=== PATIENT | male | born 1960 | race Caucasian/White ===

== ENCOUNTER 2018-02-06 19:20 | Inpatient (IN) ==
[2018-02-14 08:16] VITALS: BP 125/79
== END 2018-02-14 08:57 | disposition home health service (06) | DRG 234 ==
LOC: N.EDINP 19:20 → N.ED 19:20 → SUATTDRO 21:06 → N.3E 22:03 → N.TELEN 02-07 13:55 → N.CVR 02-10 08:05 → N.TELES 02-11 12:14
PROVIDERS: ADMIT Family Medicine; ATTEND Family Medicine

== ENCOUNTER 2022-02-01 08:20 | Inpatient (IN) ==
[2022-02-01 09:08] LABS: Basophils % 0.3 % (0.0-0.8); Eosinophils # 0.1 10*3/uL (0.0-0.87); Eosinophils % 1.1 % (0.00-10.9); Hematocrit 30.5 VOL% (42.0-52.0); Hemoglobin 9.4 GM/DL (14.0-18.0); Immature Granulocytes Absolute 0.16 #; Lymphocytes # 0.1 10*3/uL (1.4-4.0); Lymphocytes % 1.8 % (21.2-54.2); Mean Corpuscular HGB Conc 30.8 GM/DL (32-36); Mean Corpuscular Volume 93.6 FL (87-102); Mean Platelet Volume 10.7 FL (9.6-12.0); Monocytes # 0.5 10*3/uL (0.11-0.8); Monocytes % 6.4 % (1.7-12.7); Neutrophils % 88.4 % (38.7-73.9); Platelet Count 110 T/CUMM (130-400); Red Blood Count 3.26 MC/CUMM (3.8-5.5); Red Cell Distribution Width 16.1 % (9.3-17.3); White Blood Count 7.9 T/CUMM (4-12)
[2022-02-01 09:18] LABS: INR 1.3; Partial Thromboplastin Time 37.7 SECS (23.7-32.9)
[2022-02-01 09:27] LABS: Lymphocytes 1 % (20-55); Total Cells Counted 100
[2022-02-01 09:35] LABS: Bilirubin,Total 0.5 MG/DL (0.20-1.00); Calcium 7.8 MG/DL (8.5-10.1); Osmolality,Calculated 272.1 MOS/KG (273-304); Potassium 3.9 MMOL/L (3.5-5.1)
[2022-02-01] MEDS ORDERED: SODIUM CHLORIDE 0.9% 1,000 ML IV STA (12:07)
[2022-02-01] MEDS ORDERED: PIPERACILLIN/TAZOBACTAM 3,375 MG in SODIUM CHLORIDE 0.9% 100 ML IV STA (12:07)
[2022-02-01] MEDS ORDERED: SODIUM CHLORIDE 0.9% 500 ML IV STA (12:17)
[2022-02-01] MEDS ORDERED: ONDANSETRON 4 MG/2 ML VIAL IV PRN (12:32)
[2022-02-01] MEDS ORDERED: ACETAMINOPHEN 325 MG TABLET PO PRN (12:32)
[2022-02-01] MEDS ORDERED: MORPHINE 2 MG/1 ML SYRINGE IV STA (12:39)
[2022-02-01] MEDS ORDERED: BISACODYL 10 MG SUPP RECTAL ONE (17:09)
[2022-02-01] MEDS ORDERED: FUROSEMIDE 20 MG/2 ML VIAL IV ONE (17:11)
[2022-02-01] MEDS ORDERED: GLUCAGON 1 MG VIAL IM PRN (17:13)
[2022-02-01] MEDS ORDERED: DEXTROSE 10% 250 ML BAG IV PRN (17:28)
[2022-02-01] MEDS: HYDROmorphone 1 MG/1 ML SYRINGE IV PRN (20:25)
[2022-02-01] MEDS: DOCUSATE SODIUM 100 MG CAPSULE PO SCH (20:26)
[2022-02-01] MEDS: PIPERACILLIN/TAZOBACTAM 3,375 MG in SODIUM CHLORIDE 0.9% 100 ML IV SCH (20:27)
[2022-02-01] MEDS: ZALEPLON 5 MG CAPSULE PO SCH (20:39)
[2022-02-01] MEDS: INSULIN REGULAR 100 UNIT/ML SUBCUT SCH (22:35)
[2022-02-02] MEDS: HYDROmorphone 1 MG/1 ML SYRINGE IV PRN ×2 (01:40→05:49)
[2022-02-02] MEDS: LORazepam 1 MG TABLET PO PRN ×2 (04:32→13:20)
[2022-02-02] MEDS: PIPERACILLIN/TAZOBACTAM 3,375 MG in SODIUM CHLORIDE 0.9% 100 ML IV SCH ×3 (05:09→21:41)
[2022-02-02] MEDS: INSULIN REGULAR 100 UNIT/ML SUBCUT SCH ×4 (07:28→21:24)
[2022-02-02] MEDS: PANTOPRAZOLE 40 MG TABLET PO SCH (08:07)
[2022-02-02] MEDS: MELOXICAM 7.5 MG TABLET PO SCH ×2 (08:07→21:40)
[2022-02-02] MEDS: DOCUSATE SODIUM 100 MG CAPSULE PO SCH ×2 (08:07→21:40)
[2022-02-02] MEDS: MORPHINE ER 30 MG TABLET PO SCH ×2 (08:07→21:40)
[2022-02-02] MEDS: GABAPENTIN 100 MG CAPSULE PO SCH ×3 (08:07→21:40)
[2022-02-02] MEDS ORDERED: MORPHINE 60 MG PO SCH (09:00)
[2022-02-02] MEDS: DORNASE ALFA 2.5 MG/2.5 ML VIAL RESP TX SCH ×2 (11:43→19:05)
[2022-02-02] MEDS: VANCOMYCIN INJ 1,250 MG in SODIUM CHLORIDE 0.9% 250 ML IV SCH (14:41)
[2022-02-02] MEDS: ALBUTEROL/IPRATROPIUM 3 ML NEB RESP TX SCH ×2 (15:17→22:00)
[2022-02-02 16:46] LABS: Glucose,Pleural Fluid 127 MG/DL; LDH,Pleural Fluid 225 U/L; Total Protein,Pleural Fluid 3.2 G/DL
[2022-02-02 17:18] LABS: Lymphocytes,Pleural Fluid 42 %; Monocytes,Pleural Fluid 5 %; Neutrophils,Pleural Fluid 53 %
[2022-02-02 19:46] LABS: RBC,Pleural Fluid 1062 T/CUMM
[2022-02-02] MEDS: ZALEPLON 5 MG CAPSULE PO SCH (21:41)
[2022-02-03] MEDS: VANCOMYCIN INJ 1,250 MG in SODIUM CHLORIDE 0.9% 250 ML IV SCH ×2 (02:15→15:24)
[2022-02-03] MEDS: PIPERACILLIN/TAZOBACTAM 3,375 MG in SODIUM CHLORIDE 0.9% 100 ML IV SCH ×3 (05:00→20:28)
[2022-02-03] MEDS: INSULIN REGULAR 100 UNIT/ML SUBCUT SCH ×4 (07:39→20:26)
[2022-02-03] MEDS: ALBUTEROL/IPRATROPIUM 3 ML NEB RESP TX SCH ×3 (08:00→23:04)
[2022-02-03] MEDS: MORPHINE ER 30 MG TABLET PO SCH ×2 (08:17→20:27)
[2022-02-03] MEDS: GABAPENTIN 100 MG CAPSULE PO SCH ×3 (08:17→20:28)
[2022-02-03] MEDS: MELOXICAM 7.5 MG TABLET PO SCH ×2 (08:17→20:27)
[2022-02-03] MEDS: PANTOPRAZOLE 40 MG TABLET PO SCH (08:17)
[2022-02-03] MEDS: DOCUSATE SODIUM 100 MG CAPSULE PO SCH ×2 (08:17→20:25)
[2022-02-03] MEDS: FLUCONAZOLE 200 MG TABLET PO SCH (12:34)
[2022-02-03] MEDS: DORNASE ALFA 2.5 MG/2.5 ML VIAL RESP TX SCH ×2 (20:25→23:04)
[2022-02-03] MEDS: ZALEPLON 5 MG CAPSULE PO SCH (20:28)
[2022-02-03] MEDS: LORazepam 1 MG TABLET PO PRN (20:29)
[2022-02-04] MEDS: VANCOMYCIN INJ 1,250 MG in SODIUM CHLORIDE 0.9% 250 ML IV SCH ×2 (03:21→15:14)
[2022-02-04] MEDS: PIPERACILLIN/TAZOBACTAM 3,375 MG in SODIUM CHLORIDE 0.9% 100 ML IV SCH ×3 (05:50→20:40)
[2022-02-04] MEDS: DORNASE ALFA 2.5 MG/2.5 ML VIAL RESP TX SCH ×2 (07:05→19:00)
[2022-02-04] MEDS: ALBUTEROL/IPRATROPIUM 3 ML NEB RESP TX SCH ×3 (07:05→23:50)
[2022-02-04] MEDS: INSULIN REGULAR 100 UNIT/ML SUBCUT SCH ×4 (07:31→20:40)
[2022-02-04] MEDS: GABAPENTIN 100 MG CAPSULE PO SCH ×3 (08:09→20:40)
[2022-02-04] MEDS: PANTOPRAZOLE 40 MG TABLET PO SCH (08:09)
[2022-02-04] MEDS: DOCUSATE SODIUM 100 MG CAPSULE PO SCH ×2 (08:09→20:40)
[2022-02-04] MEDS: FLUCONAZOLE 200 MG TABLET PO SCH (08:11)
[2022-02-04] MEDS: MELOXICAM 7.5 MG TABLET PO SCH ×2 (08:11→20:40)
[2022-02-04] MEDS: MORPHINE ER 30 MG TABLET PO SCH ×2 (08:11→20:40)
[2022-02-04] MEDS ORDERED: LACTULOSE 20 GM/30 ML UDCUP PO PRN (10:04)
[2022-02-04] MEDS: POLYETHYLENE GLYCOL POWDER 17 GM PACK PO SCH (10:15)
[2022-02-04] MEDS: ZALEPLON 5 MG CAPSULE PO SCH (20:40)
[2022-02-05 02:33] LABS: Basophils % 0.3 % (0.0-0.8); Eosinophils # 0.1 10*3/uL (0.0-0.87); Hematocrit 29.3 VOL% (42.0-52.0); Immature Granulocytes % 1.7 %; Lymphocytes # 0.1 10*3/uL (1.4-4.0); Lymphocytes % 1.8 % (21.2-54.2); Mean Corpuscular HGB Conc 30.7 GM/DL (32-36); Mean Corpuscular Volume 92.1 FL (87-102); Mean Platelet Volume 10.9 FL (9.6-12.0); Monocytes # 0.4 10*3/uL (0.11-0.8); Monocytes % 7.3 % (1.7-12.7); Neutrophils % 86.9 % (38.7-73.9); Platelet Count 90 T/CUMM (130-400); Red Blood Count 3.18 MC/CUMM (3.8-5.5); Red Cell Distribution Width 15.9 % (9.3-17.3)
[2022-02-05 02:53] LABS: Albumin 2.1 G/DL (3.4-5.0); Bilirubin,Total 0.6 MG/DL (0.20-1.00); Calcium 7.4 MG/DL (8.5-10.1); Osmolality,Calculated 265.4 MOS/KG (273-304); Total Protein 5.2 G/DL (6.4-8.2)
[2022-02-05] MEDS: VANCOMYCIN INJ 1,250 MG in SODIUM CHLORIDE 0.9% 250 ML IV SCH ×2 (03:00→17:32)
[2022-02-05 03:24] LABS: Anisocytosis 1+; Band Neutrophils 11 % (0-10); Eosinophils 2 % (0-10); Lymphocytes 1 % (20-55); Macrocytosis Slight; Platelet Estimate Decreased; Total Cells Counted 100
[2022-02-05] MEDS: PIPERACILLIN/TAZOBACTAM 3,375 MG in SODIUM CHLORIDE 0.9% 100 ML IV SCH ×3 (04:30→21:30)
[2022-02-05] MEDS: ALBUTEROL/IPRATROPIUM 3 ML NEB RESP TX SCH ×3 (07:09→22:55)
[2022-02-05] MEDS: DORNASE ALFA 2.5 MG/2.5 ML VIAL RESP TX SCH ×2 (07:15→22:48)
[2022-02-05] MEDS: INSULIN REGULAR 100 UNIT/ML SUBCUT SCH ×4 (07:59→21:30)
[2022-02-05] MEDS ORDERED: VANCOMYCIN INJ 2,000 MG in SODIUM CHLORIDE 0.9% 500 ML IV ONE (08:00)
[2022-02-05] MEDS: MORPHINE ER 30 MG TABLET PO SCH ×2 (08:01→21:30)
[2022-02-05] MEDS: MELOXICAM 7.5 MG TABLET PO SCH ×2 (08:01→21:30)
[2022-02-05] MEDS: POLYETHYLENE GLYCOL POWDER 17 GM PACK PO SCH (08:01)
[2022-02-05] MEDS: PANTOPRAZOLE 40 MG TABLET PO SCH (08:01)
[2022-02-05] MEDS: GABAPENTIN 100 MG CAPSULE PO SCH ×3 (08:01→21:30)
[2022-02-05] MEDS: DOCUSATE SODIUM 100 MG CAPSULE PO SCH ×2 (08:02→21:30)
[2022-02-05] MEDS: FLUCONAZOLE 200 MG TABLET PO SCH (08:02)
[2022-02-05] MEDS: ZALEPLON 5 MG CAPSULE PO SCH (21:30)
[2022-02-06] MEDS: VANCOMYCIN INJ 1,250 MG in SODIUM CHLORIDE 0.9% 250 ML IV SCH ×3 (01:35→17:29)
[2022-02-06] MEDS: PIPERACILLIN/TAZOBACTAM 3,375 MG in SODIUM CHLORIDE 0.9% 100 ML IV SCH ×3 (04:00→20:50)
[2022-02-06] MEDS: ALBUTEROL/IPRATROPIUM 3 ML NEB RESP TX SCH ×3 (07:37→23:35)
[2022-02-06] MEDS: INSULIN REGULAR 100 UNIT/ML SUBCUT SCH ×4 (07:44→20:50)
[2022-02-06] MEDS: DORNASE ALFA 2.5 MG/2.5 ML VIAL RESP TX SCH ×2 (07:49→20:11)
[2022-02-06] MEDS: MELOXICAM 7.5 MG TABLET PO SCH ×2 (08:19→20:48)
[2022-02-06] MEDS: DOCUSATE SODIUM 100 MG CAPSULE PO SCH ×2 (08:19→20:49)
[2022-02-06] MEDS: MORPHINE ER 30 MG TABLET PO SCH ×2 (08:20→20:49)
[2022-02-06] MEDS: GABAPENTIN 100 MG CAPSULE PO SCH ×3 (08:20→20:49)
[2022-02-06] MEDS: FLUCONAZOLE 200 MG TABLET PO SCH (08:20)
[2022-02-06] MEDS: PANTOPRAZOLE 40 MG TABLET PO SCH (08:20)
[2022-02-06] MEDS: POLYETHYLENE GLYCOL POWDER 17 GM PACK PO SCH (08:24)
[2022-02-06] MEDS: valACYclovir 500 MG TABLET PO SCH ×3 (09:30→20:49)
[2022-02-06] MEDS ORDERED: DOXYCYCLINE HYCLATE INJ 200 MG, LIDOCAINE 1% INJ 20 ML in STERILE WATER INJ 30 ML INTRAPLEUR ONE (16:30)
[2022-02-06] MEDS: ZALEPLON 5 MG CAPSULE PO SCH (20:48)
[2022-02-06] MEDS: NYSTATIN POWDER 15 GM BOTTLE TOP SCH (20:50)
[2022-02-07] MEDS: VANCOMYCIN INJ 1,250 MG in SODIUM CHLORIDE 0.9% 250 ML IV SCH (01:06)
[2022-02-07] MEDS: PIPERACILLIN/TAZOBACTAM 3,375 MG in SODIUM CHLORIDE 0.9% 100 ML IV SCH ×3 (05:48→23:59)
[2022-02-07] MEDS: INSULIN REGULAR 100 UNIT/ML SUBCUT SCH ×4 (07:21→22:52)
[2022-02-07] MEDS: ALBUTEROL/IPRATROPIUM 3 ML NEB RESP TX SCH ×2 (07:38→15:10)
[2022-02-07] MEDS: DORNASE ALFA 2.5 MG/2.5 ML VIAL RESP TX SCH (07:47)
[2022-02-07 08:40] LABS: Basophils % 0.2 % (0.0-0.8); Eosinophils # 0.1 10*3/uL (0.0-0.87); Eosinophils % 1.9 % (0.00-10.9); Hematocrit 30.3 VOL% (42.0-52.0); Hemoglobin 9.2 GM/DL (14.0-18.0); Immature Granulocytes % 1.4 %; Immature Granulocytes Absolute 0.08 #; Lymphocytes # 0.2 10*3/uL (1.4-4.0); Lymphocytes % 2.6 % (21.2-54.2); Mean Corpuscular HGB Conc 30.4 GM/DL (32-36); Mean Corpuscular Volume 91.3 FL (87-102); Mean Platelet Volume 11.5 FL (9.6-12.0); Monocytes # 0.5 10*3/uL (0.11-0.8); Monocytes % 8.1 % (1.7-12.7); Neutrophils % 85.8 % (38.7-73.9); Platelet Count 98 T/CUMM (130-400); Red Blood Count 3.32 MC/CUMM (3.8-5.5); Red Cell Distribution Width 16.2 % (9.3-17.3); White Blood Count 5.8 T/CUMM (4-12)
[2022-02-07] MEDS: DOXYCYCLINE HYCLATE INJ 200 MG, LIDOCAINE 1% INJ 20 ML in STERILE WATER INJ 30 ML INTRAPLEUR ONE ×2 (08:52→09:15)
[2022-02-07 08:54] LABS: Calcium 7.5 MG/DL (8.5-10.1); Osmolality,Calculated 269.4 MOS/KG (273-304); Potassium 4.8 MMOL/L (3.5-5.1)
[2022-02-07 08:58] LABS: Band Neutrophils 5 % (0-10); Eosinophils 4 % (0-10); Lymphocytes 5 % (20-55); Promyelocytes 1 %; Total Cells Counted 100
[2022-02-07 08:59] LABS: Microcytosis 1+; Ovalocytes Slight; Polychromasia Slight
[2022-02-07 09:00] LABS: Platelet Estimate Decreased
[2022-02-07] MEDS: POLYETHYLENE GLYCOL POWDER 17 GM PACK PO SCH (09:39)
[2022-02-07] MEDS: DOCUSATE SODIUM 100 MG CAPSULE PO SCH ×2 (09:40→22:47)
[2022-02-07] MEDS: GABAPENTIN 100 MG CAPSULE PO SCH ×3 (09:40→22:49)
[2022-02-07] MEDS: MELOXICAM 7.5 MG TABLET PO SCH ×2 (09:41→22:48)
[2022-02-07] MEDS: valACYclovir 500 MG TABLET PO SCH ×3 (09:41→22:49)
[2022-02-07] MEDS: MORPHINE ER 30 MG TABLET PO SCH ×2 (09:41→22:48)
[2022-02-07] MEDS: PANTOPRAZOLE 40 MG TABLET PO SCH (09:42)
[2022-02-07] MEDS: FLUCONAZOLE 200 MG TABLET PO SCH (09:42)
[2022-02-07] MEDS: NYSTATIN POWDER 15 GM BOTTLE TOP SCH ×2 (09:47→22:49)
[2022-02-07 11:46] LABS: CEA, Pleural Fluid 91 ng/mL
[2022-02-07] MEDS ORDERED: FUROSEMIDE 20 MG/2 ML VIAL IV ONE (20:49)
[2022-02-07] MEDS ORDERED: MORPHINE 2 MG/1 ML SYRINGE ONE (21:39)
[2022-02-07] MEDS ORDERED: FUROSEMIDE 40 MG/4 ML VIAL IV ONE (21:40)
[2022-02-07] MEDS ORDERED: MORPHINE 2 MG/1 ML SYRINGE IV ONE ×3 (21:40→22:18)
[2022-02-07] MEDS ORDERED: POTASSIUM CHLORIDE 20 MEQ TABLET PO ONE (21:54)
[2022-02-07] MEDS ORDERED: hydrALAZINE 20 MG/1 ML VIAL IV PRN (21:54)
[2022-02-07] MEDS ORDERED: MORPHINE 2 MG/1 ML SYRINGE IV PRN ×2 (21:54→22:44)
[2022-02-07] MEDS ORDERED: hydrALAZINE 20 MG/1 ML VIAL ONE (21:55)
[2022-02-07] MEDS ORDERED: METOPROLOL TARTRATE 5 MG/5 ML VIAL IV ONE ×2 (22:09→23:04)
[2022-02-07] MEDS ORDERED: DIAZEPAM 10 MG/2 ML SYRINGE IV ONE ×2 (22:27→23:04)
[2022-02-07] MEDS: ZALEPLON 5 MG CAPSULE PO SCH (22:49)
[2022-02-07] MEDS: MORPHINE 2 MG/1 ML SYRINGE IV PRN (23:58)
[2022-02-08] MEDS: MORPHINE 2 MG/1 ML SYRINGE IV PRN ×8 (00:33→04:43)
[2022-02-08] MEDS: DORNASE ALFA 2.5 MG/2.5 ML VIAL RESP TX SCH (01:08)
[2022-02-08] MEDS: ALBUTEROL/IPRATROPIUM 3 ML NEB RESP TX SCH (01:08)
[2022-02-08] MEDS: DIAZEPAM 10 MG/2 ML SYRINGE IV PRN ×3 (01:13→03:53)
[2022-02-08] MEDS ORDERED: MORPHINE 2 MG/1 ML SYRINGE IV ONE (02:15)
[2022-02-08 04:40] VITALS: BP 136/75
[2022-02-08 09:51] LABS: CEA, Pleural Fluid 105 ng/mL
[2022-02-10 16:11] LABS: Adenosine Deaminase Pleural Fl 4 U/L (0-30)
== END 2022-02-08 06:44 | disposition expired | DRG 177 ==
LOC: N.ED 08:20 → N.EDINP 12:18 → N.TELES 14:22 → N.CC 02-07 21:29 → N.TELES 02-08 00:44
PROVIDERS: ADMIT Family Medicine; ATTEND Family Medicine
PROC: IRGDHTC (2022-02-04 09:05)